=== PATIENT | female | born 1975 | race African-American/Black ===

== ENCOUNTER 2016-10-12 17:12 | Emergency (ER) | payer OTHER ==
[~2016-10-12] VITALS: Ht 162.6 cm; Wt 110.7 kg
[~2016-10-12 17:12] MED LIST: CIPR7.5D AS; CLIN300C8 PO; IBUP-1060 PO
[2016-10-12 17:45] VITALS: BP 141/90
--- NOTE | 2016-10-12 18:32 | PHYS DOC ---
Past Medical History Past Medical History: Asthma, GERD, Other Additional Past Medical Histor: CHRONIC BACK PAIN, PCOS, scleraderma Past Surgical History: Other Additional Past Surgical Histo: L. ANKLE Alcohol Use: Occasionally Drug Use: None Adult General Chief Complaint Chief Complaint: ANKLE PROBLEM HPI HPI Patient is a 41 year old female with a history of left ankle surgery done in 2005 who presents today with chronic left ankle pain and swelling. Patient states the pain and swelling got worse a week ago after she fell on her knee. Patient states the pain is worse on ambulation. Review of Systems Review of Systems Constitutional: Denies fever or chills [] Musculoskeletal: chronic left ankle pain and swelling Integument: Denies rash or skin lesions [] Neurologic: Denies headache, focal weakness or sensory changes [] Endocrine: Denies polyuria or polydipsia [] Allergies Allergies Allergies Coded Allergies Type Severity Reaction Last Updated Verified Penicillins Allergy Intermediate 12/12/15 Yes Physical Exam Physical Exam Constitutional: Well developed, well nourished, no acute distress, non-toxic appearance. [] Extremities: Left medial ankle with mild soft tissue swelling E read old healed surgical incision noted on the left medial ankle. No signs of infection. Full range of motion to the left ankle. +2 left radial pulse. Cap refill less than 2 seconds the left toes. Sensation intact to the left lower extremity. Neurologic: Alert and oriented X 3, normal motor function, normal sensory function, no focal deficits noted. [] Psychologic: Affect normal, judgement normal, mood normal. [] Current Patient Data Vital Signs Vital Signs Date Time Temp Pulse Resp B/P (MAP) Pulse Ox O2 Delivery O2 Flow Rate FiO2 10/12/16 17:45 98.2 77 20 99 Room Air 98.2 EKG EKG [] Radiology/Procedures Radiology/Procedures [] Course & Med Decision Making Course & Med Decision Making Pertinent Labs and Imaging studies reviewed. (See chart for details) Patient is in the ED with with exacerbation of chronic left ankle pain after falling a week ago. Left ankle x-rays interpreted by Dr. Franklin 1 negative for any acute findings. Patient was discharged with instructions to follow-up with Dr. Ham her orthopedic doctor. Ice elevation encouraged. Ibuprofen for pain. Ice elevation encouraged Dragon Disclaimer Dragon Disclaimer This electronic medical record was generated, in whole or in part, using a voice recognition dictation system. Departure Departure Impression: Primary Impression: Right ankle sprain Disposition: HOME, SELF-CARE Condition: STABLE Referrals: UNKNOWN PCP NAME (PCP) JOSE HAM MD follow up with Orthopedic doctor in one week Patient Instructions: Ankle Sprain Additional Instructions: You were seen for chronic left ankle pain. Ice and elevate the extremity. Follow-up with the orthopedic doctor in 1-2 weeks. Take ibuprofen as well as Tylenol as needed for pain. Ibuprofen will help with the swelling. Problem Qualifiers Primary Impression: Right ankle sprain Encounter type: initial encounter Involved ligament of ankle: unspecified ligament Qualified Codes: S93.401A - Sprain of unspecified ligament of right ankle, initial encounter [facility] HOME AIDE Oct 12, 2016 18:32
--- NOTE | 2016-10-13 08:52 | RAD ---
Left ankle, 3 views, 10/12/2016: History: Pain There are old healed fractures of the distal tibia and fibula. There is mild to moderate degenerative change at the ankle joint with spurring and irregularity of the articular surfaces. No acute fracture or dislocation is identified. There is moderate diffuse soft tissue swelling about the ankle. IMPRESSION: 1. Degenerative change at the ankle joint. 2. No acute bony abnormality is detected.
== END 2016-10-12 18:39 | disposition home or self-care (01) ==
LOC: ER 17:12
DX: S93.401A Sprain of unspecified ligament of right ankle, initial encounter (principal); G89.29 Other chronic pain; J45.909 Unspecified asthma, uncomplicated; K21.9 Gastro-esophageal reflux disease without esophagitis; Z88.0 Allergy status to penicillin; W18.39XA Other fall on same level, initial encounter; Y93.89 Activity, other specified; Y99.8 Other external cause status; Y92.89 Other specified places as the place of occurrence of the external cause
CPT/HCPCS: 73610; 99284